=== PATIENT | female | born 1965 | race Caucasian/White ===

== ENCOUNTER 2022-03-10 07:15 | Emergency (ER) | payer BC ==
[2022-03-10 08:19] LABS: HEMOGLOBIN 13.4 gm/dl (12.3-15.3); RED BLOOD COUNT 4.32 M/UL (4.00-5.10); WHITE BLOOD COUNT 9.2 K/UL (4.5-11.0)
[2022-03-10 08:43] LABS: BUN/CREATININE RATIO 23 (0-10)
[2022-03-10] MEDS ORDERED: OMNICEF 300 MG300 MG PO (09:17)
== END 2022-03-10 10:19 | disposition home or self-care (01) ==
LOC: ER1 07:15
PROVIDERS: Physician Assistant
DX: N39.0 Urinary tract infection, site not specified (principal); K59.00 Constipation, unspecified; I10 Essential (primary) hypertension; Z87.442 Personal history of urinary calculi; Z90.710 Acquired absence of both cervix and uterus
CPT/HCPCS: 80053; 81001; 82550; 82553; 83605; 83690; 84484; 85025; 87086; 93005; 96374; 96375; 99284; J1885; J2405; Q9967